=== PATIENT | female | born 1955 ===

== ENCOUNTER 2019-01-23 09:17 | Outpatient (CLI) | payer OTHER ==
[~2019-01-23] VITALS: Ht 170.2 cm; Wt 56.2 kg
== END 2019-01-23 09:45 | disposition home or self-care (01) ==
LOC: OFIC 805 09:17
DX: K21.0 Gastro-esophageal reflux disease with esophagitis (principal); R07.0 Pain in throat; M54.2 Cervicalgia; R68.89 Other general symptoms and signs